=== PATIENT | male | born 1975 | race Caucasian/White ===

== ENCOUNTER 2024-08-04 07:22 | Outpatient (CLI) | payer OTHER, SELFPAY ==
--- NOTE | ~2024-08-04 | NM_ITS ---
EXAM: NM gastric emptying study DATE: 08/04/2024 13:35 INDICATION: Early satiety TECHNIQUE: A gastric emptying study was performed using the methodology of Jarred PHELPS, et al. J Nucl Med 2007; 48:568-572. The patient was given a meal consisting of 2 scrambled eggs labeled with 1.034 mCi Tc-99m sulfur colloid, 2 slices of toast, two packages of jam, and approximately 120 mL of water . Simultaneous anterior and posterior 1-min images of the abdomen were obtained with the patient supi ne at multiple time points over a total period of 4 hours. The geometric mean of anterior and posteri or views was determined, and the percentage retention was calculated for each time point. COMPARISON: None. FINDINGS: Gastric retention of the radiotracer-labeled meal was 20%, 14%, and 7% at the 1-hour, 2-hour, and 4-h our time points, respectively. With this technique, apparent rapid gastric emptying is suggested by < 30% gastric retention at 1 hour. Delayed gastric emptying is defined by gastric retention of >90% at 1 hour, >60% retention at 2 hours, or >10% retention at 4 hours. IMPRESSION: 1. Rapid gastric emptying. Reviewed, dictated and finalized at location A. IMPRESSION: 1. Rapid gastric emptying.
== END 2024-08-04 07:23 | disposition home or self-care (01) ==
LOC: ANHIMG 07:23
PROVIDERS: PCP Internal Medicine; Visit Provider Nurse Practitioner Family
DX: R11.2 Nausea with vomiting, unspecified (principal); R68.81 Early satiety; K30 Functional dyspepsia
CPT/HCPCS: 78264; A9541

== ENCOUNTER 2025-08-02 01:53 | Day surgery (SDC) | payer OTHER, SELFPAY ==
[2025-07-25 11:17] VITALS: BMI 32.2
--- OUTSIDE RECORDS SUMMARY | 2025-08-02 01:55 | XMS_ITS | Encounter Summary ---
Author Organization [facility] Address [address] [place] [address] Care Team Providers Care Abstractor Name Role Phone Unavailable Primary Care Provider Catracho e Encounter Details Date Type Department Care Team (Late st Contact Info) Description 09/11/2023 Lab Requisition [facility] - DermPath Lab [address] [place] [phone] Dano Hernandez MD [facility] DERMATOLOGY [address] [place] [phone] Neoplasm of uncertain behavior of skin Social History Tobacco Use Types Packs/Day Years Used Date Smoking Tobacco: Never Assessed Sex and Gender Information Value Date Recorded Sex Assigned at Not on file Legal Sex Male 3:36 PM CDT Gender Identity Not on file Sexual Orientation Not on file documented as of this encounter Plan of Treatment Not on file documented as of this encounter Procedures Procedure Name Priority Date/Time Associated Diagnosis Comments DERMATOPATHOLOGY Routine 09/11/2023 12:0 0 AM CDT Neoplasm of uncertain behavior of skin documented in this encounter Results * DERMATOPATHOLOGY (09/11/2023 12:00 AM CDT) Case Report Dermatopathology Report Case: [id number] Authorizing Provider: Dano Hernandez MD Collected: 09/11/2023 12:00 AM Ordering Location: [facility] DermPath Lab Received: 09/12/2023 12:41 PM Pathologist: Angela Dover MD Specimen: Skin, right medial malar cheek 3 1:27 PM [facility] DERMATOPATHOLOGY LABORATORY Final Diagnosis Specimen A. SKIN, right medial malar cheek: BASAL CELL CARCINOMA, NODULAR TYPE (C44.319) 1:27 PM [facility] DERMATOPATHOLOGY LABORATORY at [address] Clinical History Neoplasm of Uncertain Behavior vs. Basal Cell Carcinoma 1:27 PM [facility] DERMATOPATHOLOGY LABORATORY Gross Description Specimen A: Received is one formalin filled container labeled with the patient's name and designated right medial malar cheek. The specimen consists of a shave biopsy measuring 6x5x1 mm. Jar 0. 1:27 PM [facility] DERMATOPATHOLOGY LABORATORY Microscopic Description Specimen A. SKIN, right medial malar cheek: Within the dermis there are aggregates of basaloid cells with a high nuclear to cytoplasmic ratio and peripheral palisading. 1:27 PM [facility] DERMATOPATHOLOGY LABORATORY Disclaimer An external and internal positive and negative controls are appropriate for the histochemical, immunohistochemical and immunofluorescence stain(s) in this case (if any), except where stated explicitly. The performance characteristics of the stain(s) cited in this report were developed and its performance characteristic determined by the Dermatopathology Laboratory at [facility], directed by Dr. Mohit Eagle. These tests need not be, and therefore are not, approved by the [place] Food and Drug Administration. The tests are used for clinical purposes. Billing Codes Specimen Charges Stain Charges 20851 1 1:27 PM [facility] DERMATOPATHOLOGY LABORATORY Embedded Images 1:27 PM [facility] DERMATOPATHOLOGY LABORATORY Pathology/Cytolog y TISSUE SPECIMEN FROM SKIN / Unknown 09/11/2023 09/12/2023 12:41 PM CDT us Dano Hernandez MD LAB - PATHOLOGY/CYTOLOGY [facility] Final Result DERMATOPATHOLOGY LABORATORY [facility] - Department of Dermatology [address], [address] [phone] documented in this encounter Visit Diagnoses Diagnosis Neoplasm of uncertain behavior of skin documented in this encounter
--- OUTSIDE RECORDS SUMMARY | 2025-08-02 01:55 | XMS_ITS | Clinical Summary ---
Author Organization [facility] Address [address] [place] [address] Care Team Providers Care Electrical Accessories Ii Assembler Name Role Phone Unavailable Primary Care Provider Unavailabl e Source Comments [facility],non-owned Affiliates and Associated Physician Practices is amultiple site organization consisting of ambulatory clinics and hospital sitesin [place], [place], [place] and [place]. This disclosure is being madepursuant to the Care Everywhere program and may not contain all information available regarding this patient. Last updated 18.[facility] [employer] Social History Tobacco Use Types Packs/Day Years Used Date Smoking Tobacco: Never Assessed Sex and Gender Information Value Date Recorded Sex Assigned at Not on file Legal Sex Male 3:36 PM CDT Gender Identity Not on file Sexual Orientation Not on file Plan of Treatment Health Maintenance Due Date Last Done Comments COLOGUARD (AGES 45-75) - COL ON CA SCREENING 1974 COLON MONITORING 1974 COLONOSCOPY - COLON CA SCREENING 1974 CT COLONOGRAPHY - COLON CA SCREENING 1974 Colorectal Cancer Screening 1974 FIT - COLON CA SCREENING 1974 FLEX SIG - COLON CA SCREENING 1974 LIPID TESTING 1974 HIV SCREENING 1989 HEPATITIS C SCREENING 03/28/1992 DTAP/TDAP/TD VACCINES (1 - Tdap) 1993 HEPATITIS B VACCINE (1 of 3 - 19+ 3-dose series) 1993 PNEUMOCOCCAL VACCINE 50+ (1 of 1 - PCV) 2024 ZOSTER VACCINE (1 of 2) 2024 DEPRESSION SCREENING 11/10/2024 COVID-19 VACCINE (1 - 2023-2 5 season) 2025 INFLUENZA VACCINE (#1) 2025 HIB VACCINE Aged Out No longer eligi ble based on patient's age to complete this topic HPV VACCINE Aged Out No longer eligi ble based on patient's age to complete this topic MENINGOCOCCAL (Group B) VACC INE SHARED DECISION-MAKING Aged Out No longer eligibl e based on patient's age to complete this topic MENINGOCOCCAL GROUPS A/C/Y/W VACCINE Aged Out No longer eligible b ased on patient's age to complete this topic Insurance [facility]
--- OUTSIDE RECORDS SUMMARY | 2025-08-02 01:55 | XMS_ITS | Clinical Summary ---
Author Organization [facility] [address] [place] [phone] Care Team Providers Care Sfdc Consultant Name Role Phone Nadia Wick MD Primary Care Provide r Allergies No known active allergies Medications ACCU-CHEK TONY PLUS METER miscIndications :Type 2 diabetes mellitus with hyperglycemia, with long-term current use of insulin (HCC) USE TO TEST BLOOD SUGARS TWICE A DAY 200 each 1 9 Active ACCU-CHEK SOFTCLIX LANCETS lancetsIndicati ons:Type 2 diabetes mellitus with hyperglycemia, with long-term current use of insulin (HCC) Use to test blood sugars twice a day 200 each 1 9 Active BD ULTRA-FINE MINI PEN NEEDLE 31 gauge x 3/16 needle USE WITH INSULIN ONCE DAILY 100 each 2 9 Active ACCU-CHEK TONY PLUS TEST STRP stripIndication s:Type 2 diabetes mellitus with hyperglycemia, with long-term current use of insulin (HCC) USE TO TEST BLOOD SUGARS TWICE A DAY 200 each 1 9 Active olmesartan-hydr ochlorothiazide (BENICAR HCT) 40-25 mg per tablet Take 1 tablet by mouth nightly Active omeprazole (PriLOSEC) 40 mg capsule Take 1 capsule (40 mg total) by mouth every morning Active amLODIPine (NORVASC) 10 mg tablet Take 1 tablet (10 mg total) by mouth nightly Active atenoloL (TENORMIN) 100 mg tablet Take 1 tablet (100 mg total) by mouth nightly Active atorvastatin (LIPITOR) 80 mg tablet Take 1 tablet (80 mg total) by mouth nightly Active glimepiride (AMARYL) 4 mg tablet Take 1 tablet (4 mg total) by mouth daily before breakfast Active insulin lispro (HUMALOG KWIKPEN INSULIN SUBQ) Inject under the skin 3 (three) times a day with meals Sliding scale Active insulin glargine (TOUJEO) 300 unit/mL (1.5 mL) pen for injection Inject under the skin 2 (two) times a day 25 Units in am and 28 Units in pm Active semaglutide (OZEMPIC) 2 mg/dose (8 mg/3 mL) pen injector injection Inject 2 mg under the skin every 7 days On Active HYDROcodone-debbie taminophen (NORCO) 5-325 mg per tabletIndicatio ns:Pain Take 1 tablet by mouth every 6 (six) hours as needed for pain 15 tablet Active Active Problems Problem Noted Date Diagnosed Date BCC (basal cell carcinoma), lip 11/21/2023 Basal cell carcinoma (BCC) of skin of nose 11/18 Hyperlipidemia associated with type 2 diabetes darryn hairtomasa 07/21/2018 Assessment & Plan (03/18/2019 3:53 PM CDT): Check lipid panel. Consider starting statin Assessment & Plan (12/17/2018 10:32 AM PRESS MACHINE FEEDER): Goal of treatment , LDL cholesterol less than 100 ( less than 70 in patients with history of heart attacks and / or strokes ) NonHDL cholesterol ( total cholesterol minus HDL cholesterol ) goal less than 130 ( less than 100 in patients with history of heart attacks and / or strokes ) Low cholesterol, low fat diet was discussed and advised. Daily exercise On statin therapy Assessment & Plan (07/21/2018 10:21 AM CDT): Due to the high risk of of heart attacks and strokes in patients with diabetes, it is stronglyce recommended to aim for LDL-cholesterol ( bad cholesterol ) of less than 100 ( or less than 70 if you have a history of stroke or heart disease ) and a non HDL cholesterol of less than 130 . Since statin medications have shown to decrease the risk of heart disease and strokes in patients with diabetes , its use is strongly recommended. Non morbid obesity due to excess calories 2016 Assessment & Plan (06/06/2017 1:06 PM CDT): Importance of following diet and exercising discussed. Hypertension associated with diabetes 06/06/2017 Assessment & Plan (03/18/2019 3:54 PM CDT): Continue losartan. Check some random home BP readings Assessment & Plan (12/17/2018 10:32 AM PRESS MACHINE FEEDER): Goal blood pressure is less than 140/85 Low salt diet recommended Daily aerobic exercise Continue current meds, including DEBBIE-I or ARB Assessment & Plan (06/06/2017 1:05 PM CDT): Will start lisinopril 5 mg daily d/t elevated BP and for renal protection. To check home BP and return in one month for recheck. Type 2 diabetes mellitus wit h hyperglycemia, with long-term current use of insulin 06/06/2017 Assessment & Plan (03/18/2019 3:56 PM CDT): A1c 10.7. Still too high. Increase Tresiba to 80 units. 15 units of Novolog ac 22 units if ac BG > 250 Schedule eye exam Recommend follow up with podiatry to evaluate for work shoes with inserts. BG goals reviewed. Assessment & Plan (12/17/2018 10:31 AM PRESS MACHINE FEEDER): Your Hba1c today was: Lab Results Component Value Date HGBA1C 11.6 (A) 12/17/2018 meaning a 3 month average sugar of : 300 Your goal hba1c is under 7.0 to prevent jail diabetes complications ( eye , kidney and nerve damage ) . Your goal sugars are in the 90-130 range Daily aerobic ( walking, riding a bike, swimming ) and resistance exercises ( light weight lifting, resistance band stretching ) for at least 30 minutes is recommended If you can not walk, chair exercises for 10-15 min a day would help tremendously. As little as 15-20 minutes exercise , in one or two sessions a day, is still very helpful to improve your diabetes control . Eat small portion meals, trying not to consume no more than 1800 calories a day . Try to eat not more than than 3 servings of carbs ( starches ) wiith your meals. Avoid soft drinks, including regular sodas , fruit juices and sweetened tea. Drink water instead. Eat plenty of green and leafy vegetables, including salads. Take your medications regularly. Setting phone alarms can help . Keep your medication on the kitchen dinner table, by the bedside table or by the sink where they are visible to you. The insulin that you are currently using does not need to be refrigerated. Keep it where you can see it . Monitor your sugar levels with finger sticks regularly and keep a log sheet or book. Bring your sugar meter and /or a log book or log sheet to every office visit. Increase Tresiba to 70 units Take Novolog, 12 units with meals For sugars over 200, take 18 units Will have rep to contact you about insulin pump Will send rx for DEXCOM, continous glucose monitoring. Assessment & Plan (07/21/2018 10:43 AM CDT): Your Hba1c today was: Lab Results Component Value Date HGBA1C 11.1 07/21/2018 meaning a 3 month average sugar of : 284 Your goal hba1c is under 7.0 to prevent jail diabetes complications ( eye , kidney and nerve damage ) . Your goal sugars are in the 90-130 range Daily aerobic ( walking, riding a bike, swimming ) and resistance exercises ( light weight lifting, resistance band stretching ) for at least 30 minutes is recommended If you can not walk, chair exercises is very acceptable. As little as 15-20 minutes exercise , in one or two sessions a day, is still very helpful and will help to improve your diabetes control . Eat small portion meals, no more than 1800 calories Diet Try to eat not more than than 2-3 servings of carbs ( starches ) wiith your meals. Avoid soft drinks, including regular sodas , fruit juices and sweetened tea. Drink water instead. Eat plenty of green and leafy vegetables, including salads. Take your medications regularly,including your insulin injections. Monitor your sugar levels with finger sticks regularly and keep a log sheet or book. Bring your sugar meter and /or a log book or log sheet to every office visit. Take Tresiba 60 units once a day Take Novolog, 10 units with each meal For sugars over 150, take 12 units Over 200, take 14 units Over 250, take 16 units Fax sugar logs weekly Stop Farxiga and Glimepiride Use of an insulin pump and CGMS discussed and recommended. Call about your thoughts on the insulin pump and the DEXCOM. Assessment & Plan (06/06/2017 1:04 PM CDT): A1c 10.7 with increased fatigue and blurred vision. Not sure if Levemir is covering 24 hours so will try Tresiba 50 units. Increase glimepiride to 4 mg with first meal after getting up. Add Novolog scale at 3 pm, 9 pm , 8 am; 2:40 >140. Long discussion regarding importance of routine follow up. Evaluate BG weekly and follow up in one month. Surgical History Surgery Date Site/Laterality Comments MOHS SURGERY 11/11/2023 Medical History Medical History Date Comments Type 2 diabetes mellitus Diabete s type 2 Sleep apnea home study only, no cpap Hypertension Family History Medical History Relation Name Comments Coronary artery disease Father Jabier nary artery disease, premature; Diabetes type II Father Diabetes me llitus type 2; Other Father foot amputation ; Anesthesia problems Neg Hx Relation Name Status Comments Father Social History Tobacco Use Types Packs/Day Years Used Date Smoking Tobacco: Never Smokeless Tobacco: Never Tobacco Cessation:Counseling Given: Not Answered Alcohol Use Standard Drinks/Week Comments No 0 (1 standard drink = 0.6 oz pur e alcohol) AUDIT-C Answer Date Recorded Q1: How often do you have a drink containing alcohol? Never 11/21/2023 Q2: How many drinks containi ng alcohol do you have on a typical day when you are drinking? Patient does not drink Q3: How often do you have si x or more drinks on one occasion? Never 11/21/2023 PHQ-2 Answer Date Recorded PHQ-2 Score 0 07/03/2019 Personal Safety Answer Date Recorded Have you ever been in or are you currently in a harmful physical or emotional relationship or is someone making you feel afraid or unsafe? Denies 11/21/2023 Sex and Gender Information Value Date Recorded Sex Assigned at Not on file Legal Sex Male 3:38 AM PRESS MACHINE FEEDER Gender Identity Not on file Sexual Orientation Not on file Obstetrics History Last Filed Vital Signs Vital Sign Reading Time Taken Comments Blood Pressure 162/93 11/21/2023 9:40 AM PRESS MACHINE FEEDER Pulse 93 11/21/2023 9:40 AM PRESS MACHINE FEEDER Temperature 36.5 C (97.7 F) 11/21/2023 9:35 AM PRESS MACHINE FEEDER Respiratory Rate 12 11/21/2023 9:40 AM PRESS MACHINE FEEDER Oxygen Saturation 95% 11/21/2023 9:40 AM PRESS MACHINE FEEDER Inhaled Oxygen Concentration - - Weight 115.2 kg (254 lb) 11/21/2023 6:00 AM PRESS MACHINE FEEDER Height 193 cm (6' 4) 11/21/2023 6:00 AM PRESS MACHINE FEEDER Body Mass Index 30.92 11/21/2023 6:00 AM PRESS MACHINE FEEDER Plan of Treatment Health Maintenance Due Date Last Done Comments Albumin Creatinine Ratio, Urine 1974 Colon Cancer Screening-Colonoscopy 1974 Hepatitis C Screening 1974 Prostate Cancer Screening-PSA 1974 eGFR 1974 Dilated Eye Exam 1974 Hepatitis B Screening 1992 Regular Well Visit/Exam 18-64 1992 Pneumococcal vaccine <65 (1 of 2 - PCV) 1993 Depression Screening 07/21/2019 07/21/2018, 06/06/20 17 Hemoglobin A1C 09/18/2019 03/18/2019, 05/2019, 07/21/2018, Additional history exists Foot Exam 12/17/2019 12/17/2018, 07/11, 06/06/2017 Lipid Panel 06/18/2020 06/18/2019, 07/21/2018 Zoster Vaccine (1 of 2) 2024 Influenza Vaccine (#1) 2025 DTaP/Tdap/Td Vaccine (3 - Td or Tdap) 08/25/2029 08/25/2019, 08/10/2019, 06/29/2019 Procedures Procedure Name Priority Date/Time Associated Diagnosis Comments LIPID PANEL Routine 06/18/2019 7:08 AM CDT Type 2 diabetes mellitus with hyperglycemia, with long-term current use of insulin (HCC) POCT HEMOGLOBIN A1C Routine 03/18/2019 3 :14 PM CDT Type 2 diabetes mellitus with hyperglycemia, with long-term current use of insulin (HCC) from Last 3 Months or Most Recently Relevant to Health Maintenance Results * (ABNORMAL) Lipid panel (06/18/2019 7:08 AM CDT) SCRIBED Cholesterol, Total 142 0 - 200 EXTERNAL LAB SCRIBED HDL 29 28 - 100 EXTERNAL LAB SCRIBED LDL 78 0 - 100 EXTERNAL LAB SCRIBED Triglycerides 174(A) 0 - 150 EXTERNAL LAB Blood specimen (specimen) 06/18/2019 7:08 AM CDT Kristie Morley NP LAB BLOOD ORDERABLES Final R esult EXTERNAL LAB * (ABNORMAL) POCT hemoglobin A1c (03/18/2019 3:14 PM CDT) Hemoglobin A1C, POC 10.7(A) 4.0 - 7.0 Blood specimen (specimen) 03/18/2019 3:14 PM CDT Kristie Morley NP POINT OF CARE TEST ORDERABLE S Final Result from Last 3 Months or Most Recently Relevant to Health Maintenance Insurance [facility]ICE [facility] HMO/PPO Address: [facility] [address] [place] [address] [facility] HMO/PPO Address: [address] [place] [id number] [facility] CHOICE [facility] HMO/PPO Address: [place] [address] Care Teams Sfdc Consultant Relationship Specialty Start Date End Date Nadia Wick MD [address] [place] [address] PCP - General Internal Medicine 11/20/23
[2025-08-02 11:48] VITALS: BP 201/95; PULSE 103; RESP 18; TEMP 36.4; O2SAT 100
[2025-08-02] MEDS: SIMETHICONE ORAL SUSPENSION 20 MG/0.3 ML 30 ML BOTTLE 1.8 ML PO (12:01)
[2025-08-02] MEDS: LACTATED RINGERS 1,000 ML 150 ML IV CONT (12:02)
[2025-08-02 12:58] VITALS: BP 187/97; PULSE 100
--- NOTE | 2025-08-02 12:59 | SUR.PREOP ---
1150: BLOOD PRESSURE 201/95 LEFT ARM, 210/109 RIGHT ARM, HEART RATE 103. PT STATES HE IS NERVOUS AND DOES TAKE BLOOD PRESSURE MEDS BUT HASN'T HAD THEM TODAY DUE TO PROCEDURE. 1250: BLOOD PRESSURE 187/97, HEART RATE 100. DR BELLO NOTIFIED OF ALL THE ABOVE, SEEING PT NOW, NO NEW ORDERS.
--- NOTE | 2025-08-02 13:02 | WPDANESEPPF ---
Anes - Initial Pre Proc Eval Procedure: Operation Date: 08/02/25 13:15 Proposed Procedures p EGD & Screening Colonoscopy - Chandra David MD Date/Time: 08/02/25 13:02 Surgeon: Chandra David MD Pre Op Diagnosis: GERD, Screening Patient Data Age: 50 Gender: M Height: 1.93 m Weight: 108.8 kg Last Vital Signs Temp 97.6 F 08/02/25 11:48 Pulse 100 08/02/25 12:58 Resp 18 08/02/25 11:48 BP 187/97 H 08/02/25 12:58 Pulse Ox 100 08/02/25 11:48 O2 Del Method Room Air 08/02/25 11:48 Allergies Allergy/AdvReac Type Severity Reaction Status Date / Time lisinopril AdvReac Mild Cough Verified 08/02/25 11:46 Home Medications ?Medication ?Instructions ?Recorded ?Confirmed ?Type amlodipine 10 mg tablet 10 mg PO DAILY 07/13/24 08/02/25 History atorvastatin 10 mg tablet 80 mg PO DAILY 07/13/24 08/02/25 History insulin lispro 100 unit/mL 1 sliding scale dose subcut 07/13/24 08/02/25 History subcutaneous pen, sensor (Humalog USEASDIRECTD Tempo Pen (U-100) Insulin) olmesartan 40 mg tablet 40 mg PO DAILY 07/13/24 08/02/25 History omeprazole 40 mg capsule,delayed 40 mg PO DAILY 07/13/24 08/02/25 History release semaglutide 2 mg/dose (8 mg/3 mL) 2 mg subcut WEEKLY 07/13/24 08/02/25 History subcutaneous pen injector (Ozempic) Laboratory Tests 08/02/25 11:55 POC Capillary Glucose 181 H mg/dl (65-105) Patient hx anesthesia problems: none Family hx anesthesia problems: none Results Review: All pre-operative results and documents have been reviewed as part of the pre-operative evaluation. [facility] Past Medical History Medical History Fatty liver Dyslipidemia History of hypertension Diabetes Family History Family History Father Diabetes mellitus Mother Hypertension Social History Social History Smoking status: Never smoker Alcohol intake: never Substance use: never Substance use type: does not use Living arrangements: with family Spiritual care concerns: No Anes - Eval Final PreProcedure Day of Procedure 08/02/25 13:02 Patient weight: overweight Lungs: normal air movement Airway: Mallampati scale class III Neurological: alert and oriented Last oral intake: >/= 8 hours ASA classification: III Emergent: no Anesthetic plan: proceed Anesthesia type and monitoring: general GIVS and standard monitoring Results Review: All pre-operative results and documents have been reviewed as part of the pre-operative evaluation. HTN, hyperlipidemia, DM fsbs 181, active w working in a warehouse, no cp or sob. Informed Consent: The patient's anesthetic plan and its attendant risks and benefits were discussed with the patient/family/POA. Questions were solicited and answers provided to the satisfaction of the patient/family/POA.
--- NOTE | 2025-08-02 13:06 | PM.IMHP ---
H&P: HPI History of Present Illness Date/Time: 08/02/25 13:06 Chief Complaint: GERD- screening colonoscopy Narrative: This is the patient's first colonoscopy. There are no GI symptoms and there is no family history of colorectal cancer. in addition, the patient have from heartburn occasionally, especially when eating spicy or fatty food. He is partially controlled with omeprazole which he takes every day on an empty stomach. He is referred for both EGD and colonoscopy. Review of Systems Review of Systems: All systems reviewed & are unremarkable except as noted in HPI and below PMFSH Past Medical History Medical History Fatty liver Dyslipidemia History of hypertension Diabetes Family History Family History Father Diabetes mellitus Mother Hypertension Social History Social History Smoking status: Never smoker Alcohol intake: never Substance use: never Substance use type: does not use Living arrangements: with family Spiritual care concerns: No Meds Home Medications and Allergies Home Medications ?Medication ?Instructions ?Recorded ?Confirmed ?Type amlodipine 10 mg tablet 10 mg PO DAILY 07/13/24 08/02/25 History atorvastatin 10 mg tablet 80 mg PO DAILY 07/13/24 08/02/25 History insulin lispro 100 unit/mL 1 sliding scale dose subcut 07/13/24 08/02/25 History subcutaneous pen, sensor (Humalog USEASDIRECTD Tempo Pen (U-100) Insulin) olmesartan 40 mg tablet 40 mg PO DAILY 07/13/24 08/02/25 History omeprazole 40 mg capsule,delayed 40 mg PO DAILY 07/13/24 08/02/25 History release semaglutide 2 mg/dose (8 mg/3 mL) 2 mg subcut WEEKLY 07/13/24 08/02/25 History subcutaneous pen injector (Ozempic) Allergies Allergy/AdvReac Type Severity Reaction Status Date / Time lisinopril AdvReac Mild Cough Verified 08/02/25 11:46 Vital Signs Vital Signs - 24 hr 08/02/25 11:48 08/02/25 12:58 Temperature 97.6 F Pulse Rate 103 H 100 Respiratory Rate 18 Blood Pressure 201/95 H 187/97 H Pulse Oximetry 100 Oxygen Delivery Room Air Exam Const: General: cooperative and healthy appearing Resp: Effort & Inspection: normal respiratory effort and able to speak in complete sentences Auscultation: clear to auscultation bilaterally Cardio: Rate: regular rate Rhythm: regular rhythm GI: Inspection: normal to inspection GI Palp: No No hepatosplenomegaly present Auscultation: normal bowel sounds Rectal Exam: deferred Skin: General skin exam: normal color Psych: Appearance: grossly normal Mental Status: mental status grossly normal Assessment and Plan Assessment and plan (1) GERD (gastroesophageal reflux disease): Qualifiers: Esophagitis presence: esophagitis presence not specified Qualified Code(s): K21.9 - Gastro-esophageal reflux disease without esophagitis Code(s): K21.9 - Gastro-esophageal reflux disease without esophagitis Status: Acute Assessment and Plan: The patient is deemed a good candidate for the procedures. Consent signed. Will proceed. (2) Encounter for screening colonoscopy: Code(s): Z12.11 - Encounter for screening for malignant neoplasm of colon Status: Acute
--- NOTE | 2025-08-02 13:33 | SUR.OPER ---
egd ended at 1327 and colonoscopy begun at 1332.
--- NOTE | 2025-08-02 13:53 | S_PTH ---
PATIENT: Nilay Cosby LOC: [facility] #:[id number] AGE/SX: 50/M ROOM: RE08/02/[address]: Chandra David MD : 1975 BED: DIS: 08/02/2025 SPEC #: [id number] RECD: 08/02/25 14:04 STATUS: STANLEY REJon #: [id number] INOCENCIO: 08/02/25 13:[address]: Chandra David DEPT: [facility] Surgical RECD BY: Devon Redd ENTERED: 08/02/25 14:04 SP TYPE: Surgical OTHR DR: Libertad WickMD Tissues: A - Colon Polypectomy Procedures: Hematoxylin and Eosin Stain Gross and Microscopic Level 4
[2025-08-02 13:56] VITALS: BP 112/71; PULSE 97; RESP 15; O2SAT 97
[2025-08-02 14:06] VITALS: BP 109/70; PULSE 96; RESP 20; O2SAT 97
[2025-08-02 14:16] VITALS: BP 123/85; PULSE 95; RESP 18; O2SAT 97
== END 2025-08-02 14:36 | disposition home or self-care (01) ==
PROVIDERS: PCP Internal Medicine; Referring Provider Internal Medicine; Visit Provider Internal Medicine Gastroenterology
PROC: 0DJ08ZZ Inspection of Upper Intestinal Tract, Via Natural or Artificial Opening Endoscopic (ICD-10-PCS; CPT 45378; principal; 2025-08-02 13:15)
DX: Z12.11 Encounter for screening for malignant neoplasm of colon (principal); K63.5 Polyp of colon; K64.8 Other hemorrhoids; K21.00 Gastro-esophageal reflux disease with esophagitis, without bleeding; K31.84 Gastroparesis; E78.5 Hyperlipidemia, unspecified; I10 Essential (primary) hypertension; E11.9 Type 2 diabetes mellitus without complications; Z79.4 Long term (current) use of insulin; Z79.85 Long-term (current) use of injectable non-insulin antidiabetic drugs
CPT/HCPCS: 43235; 45385; 82948; 88305; J2003; J2704; J7120